=== PATIENT | male | born 1965 | race Caucasian/White ===

== ENCOUNTER 2024-11-14 08:04 | Outpatient (REF) | payer MEDICARE, SELFPAY ==
--- OUTSIDE RECORDS SUMMARY | 2024-11-14 08:08 | XMS_ITS | Encounter Summary ---
Author Organization [employer] Address [address] [place] [address] Care Team Providers Care Nuclear Powerplant Mechanic Name Role Phone NameAr MD Primary Care Provider [phone] Isha Taylor PharmD Unavailable [phone] Reason for Visit * Reason Onset Date Comments Prior Authorization 01/29/2024 Encounter Details Date Type Department Care Team ([facility] st Contact Info) Description 01/29/2024 Telephone [facility] [address] [place], [place] [phone] Name, MD Ar [address] [place] [address] Prior Authorization Social History Tobacco Use Types Packs/Day Years Used Date Smoking Tobacco: Some Days Cigarettes Passive Smoke Exposure: Current Smokeless Tobacco: Never Alcohol Use Standard Drinks/Week Comments Not Currently 0 (1 standard drink = 0.6 oz pur e alcohol) Housing Stability Answer Date Recorded What is your housing situation today? I have dillon bravo 07/26/[address] you li ve. Do you have problems with any of the following? None of the above 07/26/2023 Food Insecurity Answer Date Recorded Within the past 12 months, y ou worried that your food would run out before you got money to buy more: Never True 07/26/2023 Within the past 12 months,th e food you bought just didn't last and you didn't have enough money to get more: Never True Transportation Answer Date Recorded In the past 12 months, has l ack of transportation kept you from medical appts, meetings, work or from getting things needed for daily living? No 07/26/2023 Utilities Answer Date Recorded In the past 12 months, has t he electric, gas, oil or water company threatened to shut off services in your home? No 07/26/2023 Depression Answer Date Recorded Patient Health Questionnaire-2 Score 0 11/02/2022 Sex and Gender Information Value Date Recorded Sex Assigned at Male 08/08/2022 10:16 AM EDT Legal Sex Male 10:16 AM EDT Gender Identity Male 08/08/2022 10:16 AM EDT Sexual Orientation Straight 08/08/2022 10 :16 AM EDT documented as of this encounter Miscellaneous Notes * Telephone Encounter - Isa Oviedo - 02/28/2024 3:12 PM EDT Plastics Design Engineer has encountered errors while attempting to submit PA request, pt now found . No insurance scanned into chart. Plastics Design Engineer called pt to request info from insurance card. Lvm req call back and/or stop by [facility] to have insurance card scanned into chart. Waiting for call back. * Telephone Encounter - Lucia Arellano - 01/29/2024 9:52 AM EDT Tc from PA is needed for empagliflozin-metFORMIN (Synjardy) 12.5-1000 MG. Pt has not taken medication for 6 days. documented in this encounter Plan of Treatment Upcoming Encounters Date Type Department Care Team (Late st Contact Info) Description 01/08/2025 2:00 PM EDT Office Visit [facility] [address] [place] [address] Name, MD Ar [address] [place] [address] documented as of this encounter Goals Goal Patient Goal Type Associated Problems Recent Progress Patient-Stated? Author Smoking cessation General No Isha Taylor, PharmD Hemoglobin A1c < 7 Result Component 7.2( 11:15 AM EST) No Isha Taylor, PharmD Record your blood sugar as directed Result Component No Isha Taylor, PharmD documented as of this encounter Visit Diagnoses Not on filedocumented in this encounter Care Teams Nuclear Powerplant Mechanic Relationship Specialty Start Date End Date Name, MD Ar [address] [place] [address] PCP - General Family Medicine 12/25/15 Isha Taylor, PharmD [address] [place] [address] Pharmacist Internal Medicine 08/30/23 05/03/24 documented as of this encounter
--- OUTSIDE RECORDS SUMMARY | 2024-11-14 08:08 | XMS_ITS | Encounter Summary ---
Author Organization [employer] [facility] Address [address] [place] [address] 7t [place] [address] Care Team Providers Care Helper Metal Hanging Name Role Phone NameAr MD Primary Care Provider [phone] Isha Taylor PharmD Unavailable [phone] Encounter Details Date Type Department Care Team (Latest Contact Info) Description 05/16/2022 Abstract [facility] Dental, Provider, DDS Social History Tobacco Use Types Packs/Day Years Used Date Smoking Tobacco: Never Assessed Sex and Gender Information Value Date Recorded Sex Assigned at Male 08/08/2022 10:16 AM EDT Legal Sex Male 10:16 AM EDT Gender Identity Male 08/08/2022 10:16 AM EDT Sexual Orientation Straight 08/08/2022 10 :16 AM EDT documented as of this encounter Plan of Treatment Upcoming Encounters Date Type Department Care Team ( st Contact Info) Description 01/08/2025 2:00 PM EDT Office Visit [facility] [address] [place] [address] Ar Lyle MD [address] [place] [address] documented as of this encounter Visit Diagnoses Not on filedocumented in this encounter Care Teams Helper Metal Hanging Relationship Specialty Start Date End Date Ar Lyle MD [address] [place] [address] PCP - General Family Medicine 12/25/15 Isha Taylor, PharmD [address] [place] [address] Pharmacist Internal Medicine 08/30/23 05/03/24 documented as of this encounter
--- OUTSIDE RECORDS SUMMARY | 2024-11-14 08:08 | XMS_ITS | Encounter Summary ---
Author Organization [employer] Address [address] [facility] [address] [place] [address] Care Team Providers Care Benefits Sales Consultant Name Role Phone Name, Ar SHAW Primary Care Provider [phone] Encounter Details Date Type Department Care Team ([facility] st Contact Info) Description 10/22/2024 Telephone [facility] [address] [place], [place] [phone] Name, MD Ar [address] [place] [address] Social History Tobacco Use Types Packs/Day Years Used Date Smoking Tobacco: Some Days Cigarettes Passive Smoke Exposure: Current Smokeless Tobacco: Current Comments:Pt reports smoking 2-3 cigarettes per day Alcohol Use Standard Drinks/Week Comments Not Currently 0 (1 standard drink = 0.6 oz pur e alcohol) Depression Answer Date Recorded Patient Health Questionnaire-9 Score 17 05/24/2024 Patient Health Questionnaire-9 Score 17 05/24/2024 Last PHQ-9: Questionnaire Data Not on file 0 05/24/2024 Housing Stability Answer Date Recorded What is your housing situation today? I have dillon bravo 05/14/[address] you li ve. Do you have problems with any of the following? None of the above 05/14/2024 Food Insecurity Answer Date Recorded Within the past 12 months, y ou worried that your food would run out before you got money to buy more: Never True 05/14/2024 Within the past 12 months,th e food you bought just didn't last and you didn't have enough money to get more: Never True 03/2024 Transportation Answer Date Recorded In the past 12 months, has l ack of transportation kept you from medical appts, meetings, work or from getting things needed for daily living? No 05/14/2024 Utilities Answer Date Recorded In the past 12 months, has t he electric, gas, oil or water company threatened to shut off services in your home? No 05/14/2024 Depression Answer Date Recorded Patient Health Questionnaire-2 Score 6 05/24/2024 Internet Access Answer Date Recorded Internet Access Q1 Yes 06/07/2024 Internet Access Q2 Not on file 06/07/2024 Sex and Gender Information Value Date Recorded Sex Assigned at Male 08/08/2022 10:16 AM EDT Legal Sex Male 10:16 AM EDT Gender Identity Male 08/08/2022 10:16 AM EDT Sexual Orientation Straight 08/08/2022 10 :16 AM EDT documented as of this encounter Miscellaneous Notes * Telephone Encounter - Carolynn Arellano - 10/22/2024 1:23 PM EST T/c call to patient per recall, patient didn't answer. If patient call back you can book for december.Letter sent. documented in this encounter Plan of Treatment Upcoming Encounters Date Type Department Care Team (Late st Contact Info) Description 01/08/2025 2:00 PM EDT Office Visit [facility] [address] [place] [phone] NameAr MD [address] [place] [address] documented as of this encounter Goals Goal Patient Goal Type Associated Problems Recent Progress Patient-Stated? Author Smoking cessation General No Puia, Isha, PharmD Hemoglobin A1c < 7 Result Component 7.2( 4 11:15 AM EST) No Puia, Isha, PharmD Record your blood sugar as directed Result Component No Puia, Isha, PharmD documented as of this encounter Visit Diagnoses Not on filedocumented in this encounter Additional Health Concerns Assessment Noted Time PHQ-9 Depression Total Score: 17 024 10:43 AM EDT documented as of this encounter Care Teams Benefits Sales Consultant Relationship Specialty Start Date End Date NameAr MD [address] [place] [address] PCP - General Family Medicine 12/25/15 documented as of this encounter
--- OUTSIDE RECORDS SUMMARY | 2024-11-14 08:08 | XMS_ITS | Clinical Summary ---
Author Organization [employer] Address [address] [facility] 7[address] [place] [address] Care Team Providers Care Solid Plasterer Name Role Phone Name, Ar SHAW Primary Care Provider [phone] Allergies Active Allergy Reactions Criticality Noted Date Comments Atorvastatin 05/30/2016 Other reaction(s): facial swelling Buspirone 05/06/2023 Simvastatin Headache 11/06/2023 Medications * This document contains information received from the source organization and may not represent a complete record from that organization. naloxone (Narcan) 4 mg/0.1 mL nasal spray spray 0.1 milliliter by intranasal route in 1 nostril may repeat dose every 2-3 minutes as needed alternating nostrils with each dose 07/27/20 22 Active Blood Pressure kitIndications: Essential hypertension Use once a day 1 kit 11/02/19 23 Active polyethylene glycol, PEG, 3350 (Glycolax) 17 GM/SCOOP powder TAKE 1 SCOOP MIXED WITH WATER OR JUICE 1-2 TIMES A DAY NEEDED FOR CONSTIPATION 09/07/20 22 Active albuterol 108 (90 Base) MCG/ACT inhaler inhale 2 puff by inhalation route every 4 - 6 hours as needed 18 g 1 08/28/20 23 Active nicotine (Nicoderm, Step 2) 14 MG/24HR patchIndication s:Tobacco dependence Apply 1 patch daily for 6 weeks for smoking cessation. Wear for up to 24 hrs (or remove at bedtime if experiencing sleep-related side effects). Remove and replace, rotating sites. 42 patch 1 08/30/20 23 Active nicotine (Nicoderm, Step 3) 7 MG/24HR patchIndication s:Tobacco dependence Apply 1 patch daily for 2 weeks for smoking cessation. Wear for up to 24 hrs then remove and replace, rotating sites. 14 patch 5 08/30/20 23 Active glucose blood (FREESTYLE LITE) test stripIndication s:Type 2 diabetes mellitus without complication, without long-term current use of insulin ([facility]) Use to test blood sugar once daily as directed 50 each 5 08/30/20 23 Active chlorhexidine (Peridex) 0.12 % solution USE 15 ML TO RINSE MORNING AND EVENING AFTER BRUSHING FOR 30 SECONDS. SPIT DO NOT SWALLOW 09/14/20 23 Active Pulmicort Flexhaler 90 MCG/ACT inhaler INHALE 1 PUFF BY MOUTH ONCE DAILY 1 each 1 10/19/19 24 Active nicotine polacrilex (Nicorette) 4 MG gumIndications: Tobacco dependence Chew 1 piece every 1-2 hours as needed & as directed for cravings. To be used in addition to nicotine patch. 220 each 5 12/11/19 24 Active hydrOXYzine HCl (Atarax) 25 MG tabletIndicatio ns:Generalized anxiety disorder TAKE 1 TO 2 TABLETS BY MOUTH UP TO 4 TIMES DAILY NEEDED FOR ANXIETY 720 tablet 12/28/19 24 Active meloxicam (Mobic) 7.5 MG tablet TAKE 1 TABLET BY MOUTH EVERY DAY IN THE MORNING 30 tablet 01/17/20 24 Active amLODIPine (Norvasc) 10 MG tablet TAKE 1/2 TABLET BY MOUTH EVERY MORNING 45 tablet 3 04/22/20 24 Active aspirin (Aspir-Low) 81 MG EC tabletIndicatio ns:Type 2 diabetes mellitus without complication, without long-term current use of insulin ([facility]) Take 1 tablet (81 mg) by mouth Once per day. 90 tablet 3 05/07/20 24 2024 Active acamprosate (Campral) 333 MG EC tablet Take 2 tablets (666 mg) by mouth 3 times daily. Do not crush, chew, or split. 180 tablet 11 05/24/20 24 Active losartan (Cozaar) 100 MG tabletIndicatio ns:Essential hypertension Take 1 tablet (100 mg) by mouth Once per day. 30 tablet 11 06/12/20 24 2024 Active traZODone (Desyrel) 50 MG tablet TAKE 1/2 TABLET BY MOUTH AT BEDTIME IF NEEDED FOR SLEEP 45 tablet 1 06/17/20 24 Active omeprazole (PriLOSEC) [address] capsuleIndicati ons:Gastroesoph ageal reflux disease, unspecified whether esophagitis present TAKE 1 CAPSULE BY MOUTH EVERY DAY 30 MINUTES TO 1 HOUR BEFORE A MEAL 90 capsule 1 06/25/20 24 Active empagliflozin-m etFORMIN (Synjardy) 12.5-1000 MGIndications:T ype 2 diabetes mellitus without complication, without long-term current use of insulin (CMS/HCC) TAKE 1 TABLET BY MOUTH WITH BREAKFAST AND EVENING MEALS 180 tablet 1 07/08/20 24 Active methocarbamol (Robaxin) 500 MG tablet Take 1 tablet (500 mg) by mouth if needed in the morning and at bedtime for muscle spasms for up to 10 days. 20 tablet 08/30/20 24 Active PARoxetine (Paxil) 40 MG tabletIndicatio ns:Generalized anxiety disorder TAKE 1 TABLET BY MOUTH EVERY DAY IN THE MORNING 90 tablet 1 11/07/19 25 Active rosuvastatin (Crestor) 5 MG tabletIndicatio ns:Type 2 diabetes mellitus without complication, without long-term current use of insulin (CMS/HCC) TAKE 1 TABLET BY MOUTH EVERY DAY 90 tablet 1 11/07/19 25 Active PARoxetine (Paxil) 40 MG tabletIndicatio ns:Generalized anxiety disorder TAKE 1 TABLET BY MOUTH EVERY DAY IN THE MORNING 90 tablet 1 04/22/20 24 2024 Discontinued rosuvastatin (Crestor) 5 MG tabletIndicatio ns:Type 2 diabetes mellitus without complication, without long-term current use of insulin (CMS/HCC) Take 1 tablet (5 mg) by mouth Once daily. 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 ED (erectile dysfunction) 08/06/2008 Anxiety 02/18/2008 Depression 02/18/2008 Overview (04/26/2023): Patient describes depression, irritability and multiple somatic complaints since the of his brother. Patient denies any suicical ideation. He described difficulties tolerting stess and family h/o of depression. Encounters Date Type Department Care Team Description 11/07/2024 Refill [facility] [address] [place] [address] NameAr MD Generalized anxiety disorder; Type 2 diabetes mellitus without complication, without long-term current use of insulin (CMS/HCC) 10/22/[address] [address] Ar Lyle MD 08/30/2024 11:15 AM EST Office Visit [address] [address] Ar Lyle MD Type 2 diabetes mellitus without complication, without long-term current use of insulin (CMS/HCC) (Primary Dx); Alcoholism (CMS/HCC); Essential hypertension; Acute neck pain 08/30/2024 Travel 08/28/[address] [address] Myah Uriostegui [place] Chart Prep from Last 3 Months Immunizations Name Administration Dates Next Due Influenza Injectable Quadriv alant Preservative Free IIV4 MDCK 11/03/2023 Influenza injectable quadriv alent IIV4 with preservative 06/25/2019,07/19/2017 Influenza injectable quadriv alent preservative free 08/08/2022,07/28/2021,07/09/2020 Moderna Covid-19 Vaccine 12+ 12/17/2020 Moderna Covid-19 Vaccine 6+ Bivalent 09/16/2022 Pneumococcal Conjugate PCV 20 05/24/2024 TD (adult), 2 Lf tetanus tox oid, preservative free, adsorbed 06/09/2007 Tdap 08/24/2016 Social History Tobacco Use Types Packs/Day Years Used Date Smoking Tobacco: Some Days Cigarettes Passive Smoke Exposure: Current Smokeless Tobacco: Current Tobacco Cessation:Ready to Q uit: No; Counseling Given: Yes Comments:Pt reports smoking 2-3 cigarettes per day [...] Orientation Straight 08/08/2022 10 :16 AM EDT Last Filed Vital Signs Vital Sign Reading Time Taken Comments Blood Pressure 121/81 08/30/2024 11:11 AM EST Pulse 104 08/30/2024 11:11 AM EST Temperature 36.5 ??C (97.7 ??F) 08/30/2024 11:[address] Respiratory Rate 22 08/30/2024 11:11 AM EST Oxygen Saturation 98% 08/30/2024 11:11 AM EST Inhaled Oxygen Concentration - - Weight 100 kg (220 lb 6.4 oz) 08/30/2024 11:11 A M EST Height 188 cm (6' 2 ) 08/30/2024 11:11 AM EST Body Mass Index 28.3 08/30/2024 11:11 AM EST Plan of Treatment Upcoming Encounters Date Type Department Care Team (Late st Contact Info) Description 01/08/2025 2:00 PM EDT Office Visit [facility] [address] [place], [place] [phone] Name, MD Ar [address] [place] [address] Health Maintenance Due Date Last Done Comments CT Colonography 1967 FIT DNA/Cologuard 1967 FIT 1967 FOBT 1967 HIV Screening 1967 Sigmoidoscopy 1967 Hepatitis C Screening 1985 Hepatitis A Vaccines (1 of 2 - Risk 2-dose series) 1986 Hepatitis B Vaccines (1 of 3 - 19+ 3-dose series) 1986 Zoster Vaccines (1 of 2) 2017 Diabetes: Urine Protein Screening 11/02/2023 11/02/2022, 12/30/2020 Lipid Panel 11/02/2023 11/02/2022, 12/30/2020 COVID-19 Vaccine ( season) 2024 11/03/2023, 09/16/2022, 02/15/2022, Additional history exists Influenza Vaccine (#1) 2024 , 08/08/2022, 07/28/2021, Additional history exists Depression Monitoring (PHQ-9) 11/24/2024 05/24/2024, 05/24/2024 Diabetes: Hemoglobin A1C 11/30/202408/30/2 024, 05/24/2024, 09/29/2023, Additional history exists SDOH Screening 05/14/2025 05/14/2024 Alcohol/Substance Use Screening 05/24/2025 05/24/2024 Depression Screening 05/24/2025 05/24/2024, 05/24/20 24 Diabetes: Foot Exam 05/24/2025 05/24/2024, 05/24/2024, 05/24/2024, Additional history exists Tobacco Screening 08/30/2025 08/30/2024 Eye Exam 05/27/2026 05/27/2024 DTaP/Tdap/Td Vaccines (2 - Td or Tdap) 08/24/2026 08/24/2016, 06/09/2007 Colonoscopy 11/09/2027 11/09/2017 Colorectal Cancer Screening 11/09/2027 RSV Patients and Patients Aged 60 years or older (1 - 1-dose 75+ series) 2042 Pneumococcal Vaccine: 50+ Years Completed 05/24/2024 HIB Vaccines Aged Out No longer eligi ble based on patient's age to complete this topic HPV Vaccines Aged Out No longer eligi ble based on patient's age to complete this topic IPV Vaccines Aged Out No longer eligi ble based on patient's age to complete this topic Meningococcal Vaccine Aged Out No tanna yasmin eligible based on patient's age to complete this topic RSV under 20 months Aged Out No longe r eligible based on patient's age to complete this topic Rotavirus Vaccines Aged Out No longer eligible based on patient's age to complete this topic Goals Goal Patient Goal Type Associated Problems Recent Progress Patient-Stated? Author Smoking cessation General No Isha Taylor, PharmD Hemoglobin A1c < 7 Result Component 7.2( 11:15 AM EST) No Isha Taylor, PharmD Record your blood sugar as directed Result Component No Isha Taylor PharmD Procedures Procedure Name Priority Date/Time Associated Diagnosis Comments POCT GLYCATED HEMOGLOBIN, TOTAL Routine 08/30/2024 11:15 AM EST Type 2 diabetes mellitus without complication, without long-term current use of insulin ([facility]) POCT GLUCOSE Routine 08/30/2024 11:14 AM EST Type 2 diabetes mellitus without complication, without long-term current use of insulin ([facility]) ALBUMIN, RANDOM URINE W/CREATININE Routine 11/02/2022 8:22 AM EST LIPID PANEL, STANDARD Routine 11/02/2022 8:22 AM EST HM COLONOSCOPY Routine 11/09/2017 3:14 PM EST from Last 3 Months or Most Recently Relevant to Health Maintenance Results * (ABNORMAL) POCT HGB A1C (08/30/2024 11:15 AM EST) Hemoglobin A1C 7.2(A) 4.0 - 6.0 % [employer] Media Lot # [id number] Lot# Expiration Date Blood 08/30/2024 11:1 5 AM EST us Ar Lyle MD POINT OF CARE TEST ENTER/EDIT OR DERABLES Final Result * POCT Glucose (08/30/2024 11:14 AM EST) Glucose Blood, POC 157 60 - 200 mg/dL [employer] [facility] Lot # [id number] Lot# Expiration Date 025 Blood Capillary blood specimen / Unknown 08/30/2024 11:14 AM EST us Ar Lyle MD POINT OF CARE TEST ENTER/EDIT OR DERABLES Final Result * Albumin, Random Urine W/Creatinine (11/02/2022 8:22 AM EST) Creatinine, Random Urine 243 20 - 320 mg/dL [facility] Albumin, Urine 6.1 See Note: mg/dL [facility] Comment: Reference Range: Reference Range Not established Albumin/Creatinin e Ratio, Random Urine 25 <30 mcg/mg creat [facility] Comment: The ADA defines abnormalities in albumin excretion as follows: Albuminuria Category ?Result (mcg/mg creatinine) Normal to Mildly increased ?? <30 Moderately increased ? 30-299 Severely increased ? > OR = 300 The ADA recommends that at least two of three specimens collected within a 3-6 month period be abnormal before considering a patient to be within a diagnostic category. 11/02/2022 8:22 AM EST 11/02/2022 8:23 AM EST Narrative [facility] - 11/03/2022 5:25 PM EST FASTING:YES FASTING: YES us Ar Lyle MD LAB URINE ORDERABLES Final Resul t [facility] [address] [facility], [place] [address] [facility] [place] [facility] [address], ([address]) [place] [address] * (ABNORMAL) Lipid Panel, Standard (11/02/2022 8:22 AM EST) Cholesterol, Total 181 <200 mg/dL [facility] [place] [facility] HDL Cholesterol 44 > OR = 40 mg/dL [facility] [place] [facility] Triglycerides 157(H) <150 mg/dL [facility] [place] [facility] LDL Cholesterol 110(H) mg/dL (calc) [facility] [place] [facility] Comment: Reference range: <100 Desirable range <100 mg/dL for primary prevention; ?? <70 mg/dL for patients with CHD or diabetic patients with > or = 2 CHD risk factors. LDL-C is now calculated using the Naman-Leslye calculation, which is a validated novel method providing better accuracy than the Friedewald equation in the estimation of LDL-C. Naman KWAN et al. MIHAELA. 2013;310(19): 4411-0623 (http://education.[employer]/faq/NVQ824) Chol/HDLC Ratio 4.1 <5.0 (calc) [facility] Non-HDL Cholesterol 137(H) <130 mg/dL (calc) [facility] Comment: For patients with diabetes plus 1 major ASCVD risk factor, treating to a non-HDL-C goal of <100 mg/dL (LDL-C of <70 mg/dL) is considered a therapeutic option. 11/02/2022 8:22 AM EST 11/02/2022 8:23 AM EST Narrative [facility] - 11/03/2022 5:25 PM EST FASTING:YES FASTING: YES us Ar Name LAB BLOOD ORDERABLES Final Resul t [facility] [address] [place] [address] [facility] [address], ([address]) [place] [address] * Hm Colonoscopy (11/09/2017 3:14 PM EST) Colonoscopy Normal Normal Narrative Sylvia Kumar - 11/09/2017 3:14 PM EST Recommended 10 year follow up Historical Provider HEALTH MAINTENANCE Final Result from Last 3 Months or Most Recently Relevant to Health Maintenance Insurance - [facility] Care Teams Solid Plasterer Relationship Specialty Start Date End Date Name, MD Ar [address] [place] [id number] PCP - General Family Medicine 12/25/15
--- OUTSIDE RECORDS SUMMARY | 2024-11-14 08:08 | XMS_ITS | Encounter Summary ---
Author Organization [employer] Address [address] [facility] 7t [place] [address] Care Team Providers Care Licensed Retail Supervisor Name Role Phone Name, Ar SHAW Primary Care Provider [phone] Reason for Visit * Reason Comments Med Refill Encounter Details Date Type Department Care Team ([facility] st Contact Info) Description 11/07/2024 Refill [facility] [address] [place], [place] [phone] Name, MD Ar [address] [place] [address] Generalized anxiety disorder; Type 2 diabetes mellitus without complication, without long-term current use of insulin ([facility]) Social History Tobacco Use Types Packs/Day Years [...] Description 01/08/2025 2:00 PM EDT Office Visit [facility] MED[facility]INE [address] [place] [address] Name, MD Ar [address] [place] [address] documented as of this encounter Goals Goal Patient Goal Type Associated Problems Recent Progress Patient-Stated? Author Smoking cessation General No Puia, Isha, PharmD Hemoglobin A1c < 7 Result Component 7.2( 4 11:15 AM EST) No Puia, Isha, PharmD Record your blood sugar as directed Result Component No Puia, Isha, PharmD documented as of this encounter Visit Diagnoses Diagnosis Generalized anxiety disorder Type 2 diabetes mellitus without complication, without long-term current use of insulin ([facility]) documented in this encounter Additional Health Concerns Assessment Noted Time PHQ-9 Depression Total Score: 17 024 10:43 AM EDT documented as of this encounter Care Teams Licensed Retail Supervisor Relationship Specialty Start Date End Date NameAr MD [address] [place] [id number] PCP - General Family Medicine 3/18/16 documented as of this encounter
--- OUTSIDE RECORDS SUMMARY | 2024-11-14 08:08 | XMS_ITS | Encounter Summary ---
Author Organization [facility] Address [address] [place] [address] 7t [place] [address] Care Team Providers Care Treasury Assistant Name Role Phone NameAr MD Primary Care Provider [phone] Isha Taylor PharmD Unavailable [phone] Encounter Details Date Type Department Care Team (Latest Contact Info) Description 11/22/2018 Abstract [facility] CONVERSIONS Dental, Provider, DDS Social History Tobacco [...] Description 01/08/2025 2:00 PM EDT Office Visit [facility] MEDICINE [address] [place] [address] Ar Lyle MD [address] [place] [address] documented as of this encounter Visit Diagnoses Not on filedocumented in this encounter Care Teams Treasury Assistant Relationship Specialty Start Date End Date Ar Lyle MD [address] [place] [address] PCP - General Family Medicine 12/25/15 Isha Taylor, PharmD [address] [place] [address] Pharmacist Internal Medicine 08/30/23 05/03/24 documented as of this encounter
--- OUTSIDE RECORDS SUMMARY | 2024-11-14 08:08 | XMS_ITS | Encounter Summary ---
Author Organization [facility] [facility] Address [address] [facility] 7t [place] [address] Care Team Providers Care Dress Marker Name Role Phone NameAr MD Primary Care Provider [phone] Isha Taylor PharmD Unavailable [phone] Reason for Visit * Reason Comments Med Refill Encounter Details Date Type Department Care Team (Late st Contact Info) Description 06/20/[address] [facility] [address] [place] [id number] Ar Lyle MD [address] [place] [address] [phone] Generalized anxiety disorder Social History Tobacco Use Types Packs/Day Years Used Date Smoking Tobacco: Some Days Cigarettes Smokeless Tobacco: Never Alcohol Use Standard Drinks/Week Comments Not Currently 0 (1 standard drink = 0.6 oz pur e alcohol) Depression Answer Date Recorded Patient Health Questionnaire-2 [...] Description 01/08/2025 2:00 PM EDT Office Visit [facility] [address] [place] [address] [phone] Ar Lyle MD [address] [place] [address] [phone] documented as of this encounter Visit Diagnoses Diagnosis Generalized anxiety disorder documented in this encounter Care Teams Dress Marker Relationship Specialty Start Date End Date Name, MD Ar [address] [place] [address] PCP - General Family Medicine 12/25/15 Isha Taylor PharmD [address] [place] [address] Pharmacist Internal Medicine 08/30/23 05/03/24 documented as of this encounter
--- OUTSIDE RECORDS SUMMARY | 2024-11-14 08:09 | XMS_ITS | Clinical Summary ---
Author Organization [facility] Address [address] [place] [address] Care Team Providers Care Alumina Refinery Operator Name Role Phone Name, Ar SHAW Primary Care Provider [phone] Surgical History Surgery Date Site/Laterality Comments ESOPHAGOGASTRODUODENOSCOPY 03/04/08 PROCEDURE: [place] EGD TRANSORAL BIOPSY SINGLE/MULTIPLE; COMMENT: Normal esophagus, stomach-(bx:chronic gastritis, HPylori+) and duodenum on this examination. Treated for H pylori MULTIPLE TOOTH EXTRACTIONS PROCEDURE: HISTORICAL DENTAL EXTRACTION Medical History Medical History Date Comments Esophageal reflux DX:Esophageal reflux Type II or unspecified type diabetes mellitus with unspecified complication, not stated as uncontrolled DX:Type II or unspecified t ype diabetes mellitus with unspecified complication, not stated as uncontrolled Family History Medical History Relation Name Comments Diabetes Father Hyperlipidemia Father Hypertension Father Diabetes Mother age 80 Hyperlipidemia Mother Hypertension Mother Blindness Neg Hx Cataracts Neg Hx Glaucoma Neg Hx Macular degeneration Neg Hx Strabismus Neg Hx Relation Name Status Comments Father Alive at age 103 of pneumonia, was diabetic Mother dm Sister dm Social History Tobacco Use Types Packs/Day Years Used Date Smoking Tobacco: Former Cigarettes Q uit: 10/09/2005 Smokeless Tobacco: Never Alcohol Use Standard Drinks/Week Comments Yes 0 (1 standard drink = 0.6 oz pur e alcohol) Sex and Gender Information Value Date Recorded Sex Assigned at Not on file Gender Identity Not on file Sexual Orientation Not on file Obstetrics History Plan of Treatment Health Maintenance Due Date Last Done Comments Diabetes: Annual GFR (Glomer ular Filtration Rate) 1967 Diabetes: Annual Foot Exam 1977 Diabetes: Annual Retina Eye Exam 1977 Hepatitis A Vaccines (1 of 2 - Risk 2-dose series) 1986 Hepatitis B Vaccines (1 of 3 - 19+ 3-dose series) 1986 Zoster Vaccines (1 of 2) 2017 DTaP,Tdap,and Td Vaccines (2 - Td or Tdap) 06/09/2017 06/09/2007 Cholesterol Screening (Lipid Panel) 09/07/2022 Colorectal Cancer Screening: Colonoscopy 09/07/2022 Depression Screening 09/07/2022 HIV Screening 09/07/2022 Hepatitis C Screening 09/07/2022 Social Influencers of Health Screening 09/07/2022 Diabetes: Annual Urine Albumin-Creatinine Ratio (uACR) 09/23/2022 Diabetes: Blood Sugar Contro l Test (HGBA1C) 09/23/2022 COVID-19 Vaccine ( - 2023-2 5 season) 2024 Influenza Vaccine (#1) 2024 HIB Vaccines Aged Out No longer eligi ble based on patient's age to complete this topic HPV Vaccines Aged Out No longer eligi ble based on patient's age to complete this topic IPV Vaccines Aged Out No longer eligi ble based on patient's age to complete this topic MMR Vaccines Aged Out No longer eligi ble based on patient's age to complete this topic Meningococcal ACWY Vaccine Aged Out N o longer eligible based on patient's age to complete this topic Pneumococcal Vaccine: Pediat rics (0 to 5 Years) and At-Risk Patients (6 to 64 Years) Aged Out No longer eligi ble based on patient's age to complete this topic RSV Immunization Patients Un javier 20 months Aged Out No longer eligible b ased on patient's age to complete this topic Varicella Vaccines Aged Out No longer eligible based on patient's age to complete this topic Care Teams Alumina Refinery Operator Relationship Specialty Start Date End Date Name, MD Ar [address] [place] [address] PCP - General Internal Medicine 03/14/16
--- OUTSIDE RECORDS SUMMARY | 2024-11-14 08:09 | XMS_ITS | Encounter Summary ---
Author Organization [facility] Address [address] [place] [address] 7t [place] [address] Care Team Providers Care Technicians And Trades Workers Name Role Phone NameAr MD Primary Care Provider [phone] Isha Taylor PharmD Unavailable [phone] Encounter Details Date Type Department Care Team (Late st Contact Info) Description 03/09/2023 Abstract [facility] MEDICINE [address] [place] [address] [phone] Ar Lyle MD [address] [place] [address] [phone] Social History Tobacco Use Types Packs/Day Years [...] Description 01/08/2025 2:00 PM EDT Office Visit [facility] [address] [place] [address] [phone] Ar Lyle MD [address] [place] [address] [phone] documented as of this encounter Procedures Procedure Name Priority Date/Time Associated Diagnosis Comments COLONOSCOPY Routine 11/09/2017 3:14 PM EST documented in this encounter Results * Colonoscopy (11/09/2017 3:14 PM EST) Colonoscopy Normal Normal Narrative Sylvia Kumar - 11/09/2017 3:14 PM EST Recommended 10 year follow up Historical Provider HEALTH MAINTENANCE Final Result documented in this encounter Visit Diagnoses Not on filedocumented in this encounter Care Teams Technicians And Trades Workers Relationship Specialty Start Date End Date Name, MD Ar [address] [place] [address] PCP - General Family Medicine 12/25/15 Isha Taylor PharmD [address] [place] [address] Pharmacist Internal Medicine 08/30/23 05/03/24 documented as of this encounter
--- OUTSIDE RECORDS SUMMARY | 2024-11-14 08:09 | XMS_ITS | Encounter Summary ---
Author Organization [employer] [facility] Address [address] [place] [address] 7t [place] [address] Care Team Providers Care Bicycle Technician Name Role Phone Name, Ar SHAW Primary Care Provider [phone] Isha Taylor PharmD Unavailable [phone] Encounter Details Date Type Department Care Team (Late Contact Info) Description 11/07/2022 Orders Only [facility] [address] [place] [address] [phone] Martha Linder LPN Social History Tobacco Use Types Packs/Day Years Used Date Smoking Tobacco: Every Day Cigarettes Smokeless Tobacco: Never Alcohol Use Standard [...] Orientation Straight 08/08/2022 10 :16 AM EDT COVID-19 Exposure Response Date Recorded In the last 10 days, have yo u been in contact with someone who was confirmed or suspected to have Coronavirus/COVID-19? No / Unsure 11/02/2022 2:22 PM EST documented as of this encounter Plan of Treatment Upcoming Encounters Date Type Department Care Team (Late st Contact Info) Description 01/08/2025 2:00 PM EDT Office Visit [facility] [address] [place] [address] [phone] Name, MD Ar [address] [place] [address] [phone] documented as of this encounter Visit Diagnoses Not on filedocumented in this encounter Care Teams Bicycle Technician Relationship Specialty Start Date End Date Name, MD Ar [address] [place] [address] PCP - General Family Medicine 12/25/15 Isha Taylor, Kayla [address] [place] [address] Pharmacist Internal Medicine 08/30/23 05/03/24 documented as of this encounter
[2024-11-14 11:17] LABS: MANUAL DIFF FLAG NO
[2024-11-14 11:21] LABS: Basophils Absolute Auto 0.1 X10*3/uL (0.0-0.2); Basophils Percent Auto 0.7 % (0-2); Eosinophils Absolute Auto 0.4 X10*3/uL (0.0-0.4); Eosinophils Percent Auto 5.7 % (0-4); Hematocrit 47.2 % (42.0-52.0); Hemoglobin 15.4 g/dl (14.0-18.0); Imm Gran Abs Auto 0.07 X10*3/uL (0.00-0.03); Mean Corpuscular HGB Conc 32.6 g/dl (31.0-36.0); Mean Corpuscular Hemoglobin 28.8 pg (27.0-33.0); Mean Corpuscular Volume 88.2 fL (80.0-98.0); Mean Platelet Volume 11.9 fL (9.4-12.4); Monocytes Absolute Auto 0.5 X10*3/uL (0.1-1.2); Monocytes Percent Auto 7.2 % (2-11); Neutrophils Absolute Auto 3.3 x10*3/uL (2.0-8.3); Neutrophils Percent Auto 44.4 % (45-73); Platelet Count 190 X10*3/uL (160-400); Red Blood Count 5.35 X10*6/uL (4.60-5.80); Red Cell Distribution Width 14.2 % (11.0-16.0); White Blood Count 7.3 X10*3/uL (4.8-10.8)
[2024-11-14 11:43] LABS: Alanine Aminotransferase 18 U/L (0-40); Albumin Level 4.3 g/dL (3.5-5.0); Alkaline Phosphatase 61 U/L (39-117); Anion Gap 11 (12-20); Aspartate Amino Transferase 18 U/L (5-37); Bilirubin Total 0.3 mg/dL (0.0-1.0); Blood Urea Nitrogen 17 mg/dL (9-16); Calcium 9.3 mg/dL (8.4-10.2); Carbon Dioxide 24 mmol/L (22-29); Chloride 106 mmol/L (96-108); Cholesterol 238 mg/dL (<200); Estimated Glomerular Filt Rate > 60; Glucose Random 150 mg/dL (60-115); HDL Cholesterol 42 mg/dL (>40); LDL Cholesterol Calculated 151 mg/dL (<100); Potassium 4.4 mmol/L (3.3-5.1); Sodium 137 mmol/L (135-145); Total Protein 8.3 g/dL (6.5-8.0); Triglycerides 225 mg/dL (<150)
[2024-11-14 11:57] LABS: Creatinine Urine 110.63 mg/dL; Microalbum/Creatinine Ratio Ur 50.6 ug/mg cr (<30)
== END 2024-11-14 08:05 | disposition home or self-care (01) ==
LOC: HO.HHCL 08:04
PROVIDERS: Visit Provider Internal Medicine Geriatric Medicine
DX: I10 Essential (primary) hypertension (principal); E78.00 Pure hypercholesterolemia, unspecified; G47.00 Insomnia, unspecified; E11.9 Type 2 diabetes mellitus without complications
CPT/HCPCS: 36415; 80053; 80061; 82043; 82570; 85025

== ENCOUNTER 2024-11-27 10:25 | Outpatient (REF) | payer OTHER, SELFPAY ==
--- OUTSIDE RECORDS SUMMARY | 2024-11-27 11:03 | XMS_ITS | Clinical Summary ---
Author Organization [facility] Address [address] [place] [address] Care Team Providers Care Penal Officer Name Role Phone Name, Ar SHAW Primary Care Provider [phone] Surgical History Surgery Date Site/Laterality Comments ESOPHAGOGASTRODUODENOSCOPY 03/04/08 PROCEDURE: [place] EGD TRANSORAL BIOPSY SINGLE/MULTIPLE; COMMENT: Normal esophagus, [...] Recorded Sex Assigned at Not on file Legal Sex Male 4:27 PM EST Gender Identity Not on file Sexual Orientation Not on file Obstetrics History Plan of Treatment Health Maintenance Due Date Last Done Comments Diabetes: Annual GFR (Glomer ular Filtration Rate) 1967 Diabetes: Annual Foot Exam 1977 Diabetes: Annual Retina Eye Exam 1977 Hepatitis A Vaccines (1 of 2 - Risk 2-dose series) 1986 Hepatitis B Vaccines (1 of 3 - 19+ 3-dose series) 1986 Pneumococcal Vaccine: 50+ Ye ars (1 of 1 - PCV) 2017 Zoster Vaccines (1 of 2) 2017 DTaP,Tdap,and [...] patient's age to complete this topic Meningococcal B Vacine Aged Out No lo nger eligible based on patient's age to complete [...] age to complete this topic Care Teams Penal Officer Relationship Specialty Start Date End Date Name, MD Ar [address] [place], [place] PCP - General Internal Medicine 03/14/16
[2024-11-27 11:41] LABS: Appearance Urine Clear; Color Urine Yellow; Glucose Urine UA >=1000 mg/dL (Negative); Leukocyte Esterase Urine Negative (Negative); Nitrite Urine Negative (Negative); Specific Gravity - Urine >= 1.030 (1.005-1.025); UMIC TRIGGER UACC YES; Urine Blood Negative (Negative); Urine Ketones Negative (Negative); Urine Protein Trace mg/dL (Neg-Trace)
[2024-11-27 11:43] LABS: Anion Gap 12 (12-20); Blood Urea Nitrogen 17 mg/dL (9-16); Calcium 9.9 mg/dL (8.4-10.2); Carbon Dioxide 25 mmol/L (22-29); Chloride 105 mmol/L (96-108); Estimated Glomerular Filt Rate > 60; Glucose Random 160 mg/dL (60-115); Potassium 4.4 mmol/L (3.3-5.1); Sodium 138 mmol/L (135-145)
[2024-11-27 11:44] LABS: Bacteria Urine None Seen (None Seen); Hyaline Casts Urine 0-2 /LPF (0-2); RBC Urine 0-2 /HPF (0-2); Squamous Epithelial Cell Urine 0-2 /HPF (0-2); WBC Urine 0-5 /HPF (0-5)
== END 2024-11-27 10:26 | disposition home or self-care (01) ==
LOC: HO.HHCL 10:25
PROVIDERS: Visit Provider Internal Medicine Geriatric Medicine
DX: I10 Essential (primary) hypertension (principal); R35.1 Nocturia; N40.1 Benign prostatic hyperplasia with lower urinary tract symptoms; Z12.5 Encounter for screening for malignant neoplasm of prostate
CPT/HCPCS: 36415; 80048; 81001; 84153

== ENCOUNTER 2025-01-21 08:00 | Outpatient (AMB) | payer OTHER, SELFPAY ==
--- OUTSIDE RECORDS SUMMARY | 2025-01-21 08:05 | XMS_ITS | Encounter Summary ---
Author Organization [employer] [facility] Address [address] [place] [address] 7t [place] [address] Care Team Providers Care Roving Tester Laboratory Name Role Phone NameAr MD Primary Care Provider [phone] Isha Taylor PharmD Unavailable [phone] Reason for Visit * Reason Comments Med Refill Encounter Details Date Type Department Care Team (Late st Contact Info) Description 06/20/[address] [facility] [address] [place] [address] [phone] NameAr MD [address] [place] [address] Generalized anxiety disorder Social History Tobacco Use [...] as of this encounter Plan of Treatment Not on file documented as of this encounter Visit Diagnoses Diagnosis Generalized anxiety disorder documented in this encounter Care Teams Roving Tester Laboratory Relationship Specialty Start Date End Date Ar Lyle MD [address] [place] [address] [phone] PCP - General Family Medicine 12/25/15 Isha Taylor PharmD [address] [place] [phone] Pharmacist Internal Medicine 08/30/23 05/03/24 documented as of this encounter
--- OUTSIDE RECORDS SUMMARY | 2025-01-21 08:05 | XMS_ITS | Encounter Summary ---
Author Organization [facility] Address [address] [place] [address] 7t [place] [address] Care Team Providers Care Energy Project Engineer Name Role Phone Name, Ar SHAW Primary Care Provider [phone] Isha Taylor PharmD Unavailable [phone] Encounter Details Date Type Department Care Team (Latest Contact Info) Description 11/22/2018 Abstract [facility]VERSION[facility] Dental, Provider, DDS Social History Tobacco [...] on filedocumented in this encounter Care Teams Energy Project Engineer Relationship Specialty Start Date End Date Name, MD Ar [address] [place] [address] PCP - General Family Medicine 12/25/15 Isha Taylor, PharmD [address] [place] [address] Pharmacist Internal Medicine 08/30/23 05/03/24 documented as of this encounter
--- OUTSIDE RECORDS SUMMARY | 2025-01-21 08:05 | XMS_ITS | Clinical Summary ---
Author Organization [facility] Address [address] [place] [address] Care Team Providers Care Search Engine Marketing Specialist Name Role Phone Name, Ar SHAW Primary Care Provider [phone] Surgical History Surgery Date Site/Laterality Comments ESOPHAGOGASTRODUODENOSCOPY 03/04/08 PROCEDURE: [place] EGD TRANSORAL BIOPSY SINGLE/MULTIPLE; COMMENT: Normal esophagus, [...] - 2023-2 5 season) 2024 Influenza Vaccine (Season Ended) 2025 HIB Vaccines Aged Out No longer eligi [...] age to complete this topic Meningococcal B Vaccine Aged Out No l onger eligible based on patient's age to complete [...] age to complete this topic Care Teams Search Engine Marketing Specialist Relationship Specialty Start Date End Date Name, MD Ar [address] [place], [place] PCP - General Internal Medicine 03/14/16
--- OUTSIDE RECORDS SUMMARY | 2025-01-21 08:05 | XMS_ITS | Clinical Summary ---
Author Organization [employer] Address [address] [facility] [address] [place] [address] Care Team Providers Care Recycle Driver Name Role Phone Name, Ar SHAW Primary Care Provider [phone] Allergies Active Allergy Reactions Criticality Noted Date [...] as needed alternating nostrils with each dose 022 Active Blood Pressure kitIndications: Essential hypertension Use once a day 1 kit 023 Active polyethylene glycol, PEG, 3350 (Glycolax) 17 GM/SCOOP powder TAKE 1 SCOOP MIXED WITH WATER OR JUICE 1-2 TIMES A DAY NEEDED FOR CONSTIPATION 022 Active albuterol 108 (90 Base) MCG/ACT inhaler inhale 2 puff by inhalation route every 4 - 6 hours as needed 18 g 1 023 Active nicotine (Nicoderm, Step 2) 14 MG/24HR patchIndication s:Tobacco dependence Apply 1 patch daily for 6 weeks for smoking cessation. Wear for up to 24 hrs (or remove at bedtime if experiencing sleep-related side effects). Remove and replace, rotating sites. 42 patch 1 023 Active nicotine (Nicoderm, Step 3) 7 MG/24HR patchIndication s:Tobacco dependence Apply 1 patch daily for 2 weeks for smoking cessation. Wear for up to 24 hrs then remove and replace, rotating sites. 14 patch 5 Active glucose blood (FREESTYLE LITE) test stripIndication s:Type 2 diabetes mellitus without complication, without long-term current use of insulin ([facility]) Use to test blood sugar once daily as directed 50 each 5 023 Active chlorhexidine (Peridex) 0.12 % solution USE 15 ML TO RINSE MORNING AND EVENING AFTER BRUSHING FOR 30 SECONDS. SPIT DO NOT SWALLOW Active Pulmicort Flexhaler 90 MCG/ACT inhaler INHALE 1 PUFF BY MOUTH ONCE DAILY 1 each 1 024 Active nicotine polacrilex (Nicorette) 4 MG gumIndications: Tobacco dependence Chew 1 piece every 1-2 hours as needed & as directed for cravings. To be used in addition to nicotine patch. 220 each 5 024 Active meloxicam (Mobic) 7.5 MG tablet TAKE 1 TABLET BY MOUTH EVERY DAY IN THE MORNING 30 tablet 024 Active amLODIPine (Norvasc) 10 MG tablet TAKE 1/2 TABLET BY MOUTH EVERY MORNING 45 tablet 3 024 Active aspirin (Aspir-Low) 81 MG EC tabletIndicatio ns:Type 2 diabetes mellitus without complication, without long-term current use of insulin ([facility]) Take 1 tablet (81 mg) by mouth Once per day. 90 tablet 3 024 2024 Active acamprosate (Campral) 333 MG EC tablet Take 2 tablets (666 mg) by mouth 3 times daily. Do not crush, chew, or split. 180 tablet 024 Active losartan (Cozaar) 100 MG tabletIndicatio ns:Essential hypertension Take 1 tablet (100 mg) by mouth Once per day. 30 tablet 024 2024 Active methocarbamol (Robaxin) 500 MG tablet Take 1 tablet (500 mg) by mouth if needed in the morning and at bedtime for muscle spasms for up to 10 days. 20 tablet 024 Active PARoxetine (Paxil) 40 MG tabletIndicatio ns:Generalized anxiety disorder TAKE 1 TABLET BY MOUTH EVERY DAY IN THE MORNING 90 tablet 1 025 Active hydrOXYzine HCl (Atarax) 25 MG tabletIndicatio ns:Generalized anxiety disorder TAKE 1 TO 2 TABLETS BY MOUTH UP TO 4 TIMES DAILY NEEDED FOR ANXIETY 720 tablet 025 Active traZODone (Desyrel) 50 MG tablet TAKE 1/2 TABLET BY MOUTH AT BEDTIME IF NEEDED FOR SLEEP 45 tablet 1 025 Active omeprazole (PriLOSEC) [address] capsuleIndicati ons:Gastroesoph ageal reflux disease, unspecified whether esophagitis present TAKE 1 CAPSULE BY MOUTH EVERY DAY 30 MINUTES TO 1 HOUR BEFORE A MEAL 90 capsule 1 025 Active tamsulosin (Flomax) 0.4 MG 24 hr capsule Take 2 capsules (0.8 mg) by mouth Once per day. 60 capsule 2 025 2024 Active empagliflozin-m etFORMIN (Synjardy) 12.5-1000 MGIndications:T ype 2 diabetes mellitus without complication, without long-term current use of insulin ([facility]) TAKE 1 TABLET BY MOUTH TWICE DAILY WITH BREAKFAST AND WITH DINNER 180 tablet 1 025 Active rosuvastatin (Crestor) 5 MG tabletIndicatio ns:Type 2 diabetes mellitus without complication, without long-term current use of insulin ([facility]) Take 1 tablet (5 mg) by mouth Once per day. 90 tablet 1 025 Active traZODone (Desyrel) 50 MG tablet TAKE 1/2 TABLET BY MOUTH AT BEDTIME IF NEEDED FOR SLEEP 45 tablet 1 024 2024 Discontinued omeprazole (PriLOSEC) [address] capsuleIndicati ons:Gastroesoph ageal reflux disease, unspecified whether esophagitis present TAKE 1 CAPSULE BY MOUTH EVERY DAY 30 MINUTES TO 1 HOUR BEFORE A MEAL 90 capsule 1 024 2024 Discontinued empagliflozin-m etFORMIN (Synjardy) 12.5-1000 MGIndications:T ype 2 diabetes mellitus without complication, without long-term current use of insulin (CMS/HCC) TAKE 1 TABLET BY MOUTH WITH BREAKFAST AND EVENING MEALS 180 tablet 1 024 2024 Discontinued rosuvastatin (Crestor) 5 MG tabletIndicatio ns:Type 2 diabetes mellitus without complication, without long-term current use of insulin ([facility]) TAKE 1 TABLET BY MOUTH EVERY DAY 90 tablet 1 025 2024 Discontinued(R eorder (will not trigger notification to Pharmacy)) tamsulosin (Flomax) 0.4 MG 24 hr capsule Take 1 capsule (0.4 mg) by mouth Once per day for 7 days, THEN 2 capsules (0.8 mg) Once per day. 30 capsule 11 025 2024 Discontinued(D ose adjustment) empagliflozin-m etFORMIN (Synjardy) 12.5-1000 MGIndications:T ype 2 diabetes mellitus without complication, without long-term current use of insulin ([facility]) TAKE 1 TABLET BY MOUTH TWICE DAILY WITH BREAKFAST AND WITH DINNER 180 tablet 1 025 2024 Discontinued(R eorder (will not trigger notification to Pharmacy)) Active Problems Problem Noted Date Diagnosed Date BPH associated with nocturia 01/08/2025 Class 1 obesity 04/26/2023 Moderate asthma 09/14/2022 [...] 09/29/2008 Overview (04/26/2023): [place] [facility] [place] ED (erectile dysfunction) 08/06/2008 Anxiety 02/18/2008 Depression 02/18/2008 Overview (04/26/2023): Patient describes depression, irritability and multiple somatic complaints since the of his brother. Patient denies any suicical ideation. He described difficulties tolerting stess and family h/o of depression. Encounters Date Type Department Care Team Description 01/08/2025 2:00 PM EDT Office Visit [facility] [address] [place] [phone] Ar Lyle MD Type 2 diabetes mellitus without complication, without long-term current use of insulin (CMS/HCC) (Primary Dx); Essential hypertension; Habitual alcohol use; BPH associated with nocturia; Type 2 diabetes mellitus without complication, without long-term current use of insulin (CMS/HCC) 01/08/2025 Travel 01/05/2025 Refill [facility] [address] [place] [phone] Ar Lyle MD Type 2 diabetes mellitus without complication, without long-term current use of insulin (CMS/HCC) 12/21/2024 Refill [facility] [address] [place] [phone] Ar Lyle MD Gastroesophageal reflux disease, unspecified whether esophagitis present 11/27/2024 9:45 AM EST Office Visit [address] [address] Ar Lyle MD Type 2 diabetes mellitus without complication, without long-term current use of insulin (CMS/HCC) (Primary Dx); BPH associated with nocturia; Seborrheic keratosis; Habitual alcohol use; Generalized anxiety disorder 11/26/2024 Telephone [facility] [address], [place] [phone] Ar Lyle MD chartprep 11/19/2024 Patient Outreach [facility] [address], [place] [phone] Ar Lyle MD Pre-visit Planning (SDOH negative, Tobacco screening negative) 11/18/2024 Telephone [facility] [address] [place] [address] [phone] Ar Lyle MD Referral 11/07/2024 Refill [facility] [address] [place] [phone] Ar Lyle MD Generalized anxiety disorder; Type 2 diabetes mellitus without complication, without long-term current use of insulin (CMS/HCC) from Last 3 Months Immunizations Name Administration [...] Tobacco: Current Tobacco Cessation:Ready to Q uit: Not Asked; Counseling Given: Not Answered Comments:Pt reports smoking 2-3 cigarettes per day [...] Date Recorded Patient Health Questionnaire-2 Score 6 11/27/2024 Internet Access Answer Date Recorded Internet Access [...] Sign Reading Time Taken Comments Blood Pressure 142/89 01/08/2025 2:12 PM EDT Pulse 102 01/08/2025 2:00 PM EDT Temperature 36.3 ??C (97.3 ??F) 01/08/2025 2:00 PM ED T Respiratory Rate 21 01/08/2025 2:00 PM EDT Oxygen Saturation 94% 01/08/2025 2:00 PM EDT Inhaled Oxygen Concentration - - Weight 105 kg (231 lb 12.8 oz) 01/08/2025 2:00 P M EDT Height 188 cm (6' 2 ) 01/08/2025 2:00 PM EDT Body Mass Index 29.76 01/08/2025 2:00 PM EDT Plan of Treatment Health Maintenance Due Date Last Done Comments CT Colonography 1967 FIT DNA/Cologuard 1967 FIT 1967 FOBT 1967 HIV Screening 1967 Sigmoidoscopy 1967 Hepatitis C Screening 1985 Hepatitis A Vaccines (1 of 2 - Risk 2-dose series) 1986 Hepatitis B Vaccines (1 of 3 - 19+ 3-dose series) 1986 Zoster Vaccines (1 of 2) 2017 COVID-19 Vaccine ( season) 2024 11/03/2023, 09/16/2022, 02/15/2022, Additional history exists Influenza Vaccine (#1) 2024 , 08/08/2022, 07/28/2021, Additional history exists Diabetes: Hemoglobin A1C 04/09/2025 04/ 025, 11/27/2024, 08/30/2024, Additional history exists Alcohol/Substance Use Screening 05/24/2025 05/24/2024 Diabetes: Foot Exam 05/24/2025 05/24/2024, 05/24/2024, 05/24/2024, Additional history exists Depression Monitoring 05/27/2025 11/27/2024, 024 Diabetes: Urine Protein Screening 11/14/2025 11/14/2024, 11/02/2022, 12/30/2020 Lipid Panel 11/14/2025 11/14/2024, 10/10, 12/30/2020 SDOH Screening 11/19/2025 11/19/2024 Depression Screening 11/27/2025 11/27/2024, 05/24/20 Tobacco Screening 01/08/2026 01/08/2025 Eye Exam 05/27/2026 05/27/2024 DTaP/Tdap/Td Vaccines (2 [...] PharmD Hemoglobin A1c < 7 Result Component 7.3( 2:02 PM EDT) No Isha Taylor, PharmD Record your blood sugar as directed Result Component No Martita Taylorsa, PharmD Procedures Procedure Name Priority Date/Time Associated Diagnosis Comments POCT GLUCOSE Routine 01/08/2025 2:02 PM EDT Type 2 diabetes mellitus without complication, without long-term current use of insulin (CMS/HCC) POCT GLYCATED HEMOGLOBIN, TOTAL Routine 01/08/2025 2:02 PM EDT Type 2 diabetes mellitus without complication, without long-term current use of insulin (CMS/HCC) URINALYSIS, COMPLETE, WITH REFLEX TO CULTURE Routine 11/27/2024 10:30 AM EST BPH associated with nocturia PSA, TOTAL Routine 11/27/2024 10:30 AM EST BPH associated with nocturia BASIC METABOLIC PANEL Routine 11/27/2024 10:30 AM EST Essential hypertension POCT GLUCOSE Routine 11/27/2024 10:05 AM EST Type 2 diabetes mellitus without complication, without long-term current use of insulin (CMS/HCC) POCT GLYCATED HEMOGLOBIN, TOTAL Routine 11/27/2024 10:04 AM EST Type 2 diabetes mellitus without complication, without long-term current use of insulin (CMS/HCC) ALBUMIN, RANDOM URINE W/CREATININE Routine 11/14/2024 8:07 AM EST Type 2 diabetes mellitus without complication, without long-term current use of insulin (CMS/HCC) Essential hypertension Insomnia, unspecified type Encounter for immunization LIPID PANEL, STANDARD Routine 11/14/2024 8:07 AM EST Type 2 diabetes mellitus without complication, without long-term current use of insulin (CMS/HCC) Essential hypertension Insomnia, unspecified type Encounter for immunization COMPREHENSIVE METABOLIC PANEL Routine 11/14/2024 8:07 AM EST Type 2 diabetes mellitus without complication, without long-term current use of insulin (CMS/HCC) Essential hypertension Insomnia, unspecified type Encounter for immunization CBC WITH AUTO DIFFERENTIAL Routine 11/14/2024 8:07 AM EST Type 2 diabetes mellitus without complication, without long-term current use of insulin (CMS/HCC) Essential hypertension Insomnia, unspecified type Encounter for immunization COLONOSCOPY Routine 11/09/2017 3:14 PM EST from Last 3 Months or Most Recently Relevant to Health Maintenance Results * (ABNORMAL) POCT HGB A1C (01/08/2025 2:02 PM EDT) Only the most recent of2 resultswithin the time period is included. Hemoglobin A1C 7.3(A) 4.0 - 6.0 % QC Media Lot # [id number] Lot# Expiration Date [id number] Blood 01/08/2025 2:02 PM EDT Ar Lyle MD POINT OF CARE TEST ENTER/EDIT OR DERABLES Final Result * POCT Glucose (01/08/2025 2:02 PM EDT) Only the most recent of2 resultswithin the time period is included. Glucose Blood, POC 115 60 - 200 mg/dL QC Media Lot # [id number] Lot# Expiration Date [id number] Blood Capillary blood specimen / Unknown 01/08/2025 2:02 PM EDT Ar Lyle MD POINT OF CARE TEST ENTER/EDIT OR DERABLES Final Result * (ABNORMAL) Urinalysis, Complete, with Reflex to Culture (11/27/2024 10:30 AM EST) Color Urine Yellow [facility] Appearance Urine Clear [facility] PH 6.0 5.0 - 9.0 [facility] Glucose Urine UA >=1000(A) Negative mg/dL [facility] Urine Blood Negative Negative [facility] Specific Cardale - Urine >=1.030(H) 1.005 - 1.025 [facility] Urine Protein Trace Neg-Trace mg/dL [facility] Urine Ketones Negative Negative mg/dL [facility] Nitrite Urine Negative Negative [facility] Leukocyte Esterase Urine Negative Negative [facility] RBC Urine 0-2 0 - 2 /HPF [facility] Urine WBC 0-5 0 - 5 /HPF [facility] Urine Squamous Epithelial Cell 0-2 0 - 2 /HPF [facility] Urine Bacteria None Seen None Seen [facility] Hyaline Casts, Urine 0-2 0 - 2 /LPF [facility] Urine 11/27/2024 10:3 0 AM EST 11/27/2024 11:22 AM EST Narrative [facility] - 11/27/2024 11:45 AM EST Urine, Clean Catch us Ar yLle MD LAB URINE ORDERABLES Final Resul t Performing Organization Address [facility]/ZIP Co de Phone Number [facility] [address] [place] [phone] * PSA,Total (11/27/2024 10:30 AM EST) Prostate Specific Antigen 0.30 <0.05 - 4.0 ng/mL [facility] Comment:PSA methodology: Stephanie Onofre i ChemiluminescentMicroparticle Immunoassay (CMIA) Blood Venous blood specimen / Unknown 11/27/2024 10:30 AM EST 11/27/2024 11:10 AM EST us Ar Lyle MD LAB BLOOD ORDERABLES Final Resul t Performing Organization Address [facility]/ZIP Co de Phone Number [facility] [address] [place] [address] [phone] * (ABNORMAL) Basic Metabolic Panel (11/27/2024 10:30 AM EST) Sodium 138 135 - 145 mmol/L [facility] Potassium 4.4 3.3 - 5.1 mmol/L [facility] Chloride 105 96 - 108 mmol/L [facility] Carbon Dioxide 25 22 - 29 mmol/L [facility] Anion Gap 12 12 - 20 [facility] Urea Nitrogen (BUN) 17(H) 9 - 16 mg/dL [facility] Creatinine, Serum 0.94 0.5 - 1.4 mg/dL [facility] Estimated Glomerular Filt Rate >60 [facility] Comment:Chronic Kidney Disea se: Estimated GFR < 60 mL/min/[id number] Kidney Disease: Estimated GFR < 15 mL/min/1.73m2 Glucose 160(H) 60 - 115 mg/dL [facility] Calcium 9.9 8.4 - 10.2 mg/dL [facility] Blood Venous blood specimen / Unknown 11/27/2024 10:30 AM EST 11/27/2024 11:10 AM EST us Ar Lyle MD LAB BLOOD ORDERABLES Final Resul t Performing Organization Address [facility] de Phone Number [facility] [address] [place] [address] [phone] * (ABNORMAL) Albumin, Random Urine W/Creatinine (11/14/2024 8:07 AM EST) Creatinine, Urine 110.63 mg/dL [facility] Microalbumin Urine 56.0 mg/L [facility] Microalbum Creatinine Ratio Ur 50.6(H) <30 ug/mg cr [facility] Comment:Albumin/Creatinine R atio Reference Ranges: Normal: < 30 ug/mg creatinine Microalbuminuria: 30 - 300 ug/mg creatinineClinical Albuminuria: > 300 ug/mg creatinine Urine (Urine, Random) 11/14/2024 8:07 AM EST 11/14/2024 11:22 AM EST us Ar Lyle MD LAB URINE ORDERABLES Final Resul t Performing Organization Address [facility] Co de Phone Number [facility] [address] [place] [address] [phone] * (ABNORMAL) CBC auto differential (11/14/2024 8:07 AM EST) White Blood Count 7.3 4.8 - 10.8 X10*3/uL [facility] Red Blood Count 5.35 4.60 - 5.80 X10*6/uL [facility] Hemoglobin 15.4 14.0 - 18.0 g/dl [facility] Hematocrit 47.2 42.0 - 52.0 % [facility] Mean Corpuscular Volume 88.2 80.0 - 98.0 fL [facility] Mean Corpuscular Hemoglobin 28.8 27.0 - 33.0 pg [facility] Mean Corpuscular HGB Conc 32.6 31.0 - 36.0 g/dl [facility] Red Cell Distribution Width 14.2 11.0 - 16.0 % [facility] Platelet Count 190 160 - 400 X10*3/uL [facility] Mean Platelet Volume 11.9 9.4 - 12.4 fL [facility] Neutrophils Percent Auto 44.4(L) 45 - 73 % [facility] Imm Gran Pct Auto 1.0(H) 0.0 - 0.4 % [facility] Lymphocytes Percent Auto 41.0(H) 20 - 40 % [facility] Monocytes Percent Auto 7.2 2 - 11 % [facility] Eosinophils Percent Auto 5.7(H) 0 - 4 % [facility] Basophils Percent Auto 0.7 0 - 2 % [facility] NRBC Pct Auto 0.0 0.0 - 0.2 /100WBC [facility] Neutrophils Absolute Auto 3.3 2.0 - 8.3 x10*3/uL [facility] Imm Gran Abs Auto 0.07(H) 0.00 - 0.03 X10*3/uL [facility] Lymphocytes Absolute Auto 3.0 1.2 - 4.9 X10*3/uL [facility] Monocytes Absolute Auto 0.5 0.1 - 1.2 X10*3/uL [facility] Eosinophils Absolute Auto 0.4 0.0 - 0.4 X10*3/uL [facility] Basophils Absolute Auto 0.1 0.0 - 0.2 X10*3/uL [facility] NRBC Abs Auto 0.000 0.0 - 0.012 X10*3/uL [facility] Blood Venous blood specimen / Unknown 11/14/2024 8:07 AM EST 11/14/2024 11:12 AM EST Ar Lyle MD LAB BLOOD ORDERABLES Final Resul t Performing Organization Address [facility] Co de Phone Number [facility] [address] [place] [address] [phone] * (ABNORMAL) Lipid Panel, Standard (11/14/2024 8:07 AM EST) Triglycerides 225(H) <150 mg/dL [facility] Comment:Desirable Triglyceri de: less than 150 mg/dLBorderline High Triglyceride 150-199 mg/dLHigh Triglyceride: 200-499 mg/dLVery High Triglyceride: greater than or equal to 5OO mg/dL Cholesterol 238(H) <200 mg/dL [facility] Comment:Desirable Cholestero l: less than 200 mg/dLBorderline High Cholesterol: 200-239 mg/dLHigh Cholesterol: greater than 239 mg/dL LDL Cholesterol Calculated 151(H) <100 mg/dL [facility] Comment:Desirable LDL: less than 100 mg/dLNear Optimal/Above Optimal LDL: 110- 129 mg/dLBorderline High LDL: 130-159 mg/dLHigh LDL: 160-189 mg/dLVery High LDL: greater than or equal to 190 mg/dL HDL Cholesterol 42 >40 mg/dL [facility] Comment:Desirable HDL: great er than 40 mg/dL Note: This HDL assay may give artificially low results in patients with liver disease. Blood Venous blood specimen / Unknown 11/14/2024 8:07 AM EST 11/14/2024 11:12 AM EST us Ar Lyle MD LAB BLOOD ORDERABLES Final Resul t Performing Organization Address City/[facility]/ZIP Co de Phone Number [facility] [address] [place] [address] [phone] * (ABNORMAL) Comprehensive Metabolic Panel (11/14/2024 8:07 AM EST) Sodium 137 135 - 145 mmol/L [facility] Potassium 4.4 3.3 - 5.1 mmol/L [facility] Chloride 106 96 - 108 mmol/L [facility] Carbon Dioxide 24 22 - 29 mmol/L [facility] Anion Gap 11(L) 12 - 20 [facility] Urea Nitrogen (BUN) 17(H) 9 - 16 mg/dL [facility] Creatinine, Serum 0.84 0.5 - 1.4 mg/dL [facility] Estimated Glomerular Filt Rate >60 [facility] Comment:Chronic Kidney Disea se: Estimated GFR < 60 mL/min/[id number] Kidney Disease: Estimated GFR < 15 mL/min/1.73m2 Glucose 150(H) 60 - 115 mg/dL [facility] Calcium 9.3 8.4 - 10.2 mg/dL [facility] Bilirubin, Total 0.3 0.0 - 1.0 mg/dL [facility] Aspartate Amino Transferase 18 5 - 37 U/L [facility] Alanine Aminotransferase 18 0 - 40 U/L [facility] Total Protein 8.3(H) 6.5 - 8.0 g/dL [facility] Albumin Level 4.3 3.5 - 5.0 g/dL [facility] Alkaline Phosphatase 61 39 - 117 U/L [facility] Blood Venous blood specimen / Unknown 11/14/2024 8:07 AM EST 11/14/2024 11:12 AM EST us Ar Lyle MD LAB BLOOD ORDERABLES Final Resul t [facility] [address] [place] [phone] * Hm Colonoscopy (11/09/2017 3:14 PM EST) Colonoscopy Normal Normal Narrative Sylvia Kumar - 11/09/2017 3:14 PM EST Recommended 10 year follow up us Historical Provider HEALTH MAINTENANCE Final Result from Last 3 Months or Most Recently Relevant to Health Maintenance Insurance [facility] Member Subscriber Plan / Payer (Ef fective 2024-Present) Name:Joaquín Isabel Relation to Subscriber:Self Name:Joaquín Isabel Payer ID:Not on file Group ID:[id number] Type:Not on file Address: [address] STANDARD Care Teams Recycle Driver Relationship Specialty Start Date End Date Name, MD Ar [address] [place] [phone] PCP - General Family Medicine 12/25/15
--- OUTSIDE RECORDS SUMMARY | 2025-01-21 08:05 | XMS_ITS | Encounter Summary ---
Author Organization [employer] [facility] Address [address] [place] [address] [address] [place] [address] Care Team Providers Care Manager Trainee Name Role Phone Name, Ar SHAW Primary Care Provider [phone] Isha Taylor PharmD Unavailable [phone] Encounter Details Date Type Department Care Team (Latest Contact Info) Description 05/16/2022 Abstract [facility] CONVERSIONS Dental, Provider, DDS Social History Tobacco [...] on filedocumented in this encounter Care Teams Manager Trainee Relationship Specialty Start Date End Date Name, MD Ar [address] [place] [address] PCP - General Family Medicine 12/25/15 Isha Taylor, PharmD [address] [place] [address] Pharmacist Internal Medicine 08/30/23 05/03/24 documented as of this encounter
--- OUTSIDE RECORDS SUMMARY | 2025-01-21 08:05 | XMS_ITS | Encounter Summary ---
Author Organization [employer] [facility] Address [address] [facility] [address] [place] [address] Care Team Providers Care Pile Driving Setter Name Role Phone NameAr MD Primary Care Provider [phone] Isha Taylor PharmD Unavailable [phone] Encounter Details Date Type Department Care Team (Late st Contact Info) Description 03/09/2023 Abstract [facility] [address] [place], [place] [phone] Name, MD Ar [address] [place] [address] Social History Tobacco Use Types Packs/Day Years [...] on file documented as of this encounter Procedures Procedure Name Priority Date/Time Associated Diagnosis Comments COLONOSCOPY Routine 11/09/2017 3:14 PM EST documented in this encounter Results * Colonoscopy (11/09/2017 3:14 PM EST) Colonoscopy Normal Normal Narrative Sylvia Kumar - 11/09/2017 3:14 PM EST Recommended 10 year follow up us Historical Provider HEALTH MAINTENANCE Final Result documented in this encounter Visit Diagnoses Not on filedocumented in this encounter Care Teams Pile Driving Setter Relationship Specialty Start Date End Date Name, MD Ar [address] [place] [address] PCP - General Family Medicine 12/25/15 Isha Taylor PharmD [address] [place] [address] Pharmacist Internal Medicine 08/30/23 05/03/24 documented as of this encounter
--- OUTSIDE RECORDS SUMMARY | 2025-01-21 08:05 | XMS_ITS | Encounter Summary ---
Author Organization [employer] Address [address] [facility] 7[address] [place] [address] Care Team Providers Care Valve Liner Rubber Name Role Phone NameAr MD Primary Care Provider [phone] Isha Taylor PharmD Unavailable [phone] Reason for Visit * Reason Onset Date Comments Prior Authorization 01/29/2024 Encounter Details Date Type Department Care Team ([facility] st Contact Info) Description 01/29/2024 Telephone [facility] [address] [place], [place] [phone] Name, MD Ar [address] [place] [address] Prior Authorization Social History Tobacco Use Types [...] Isa Oviedo - 02/28/2024 3:12 PM EDT Atomic Fuel Assembler has encountered errors while attempting to submit PA request, pt now found . No insurance scanned into chart. Atomic Fuel Assembler called pt to request info from insurance card. m req call back and/or stop by [facility] to have insurance card scanned into chart. Waiting for call back. * Telephone Encounter - Lucia Arellano - 01/29/2024 9:52 AM EDT Tc from PA is needed for empagliflozin-metFORMIN (Synjardy) 12.5-1000 MG. Pt has not taken medication for 6 days. documented in this encounter Plan of Treatment Not on file documented as of this encounter Goals Goal Patient Goal Type Associated Problems Recent Progress Patient-Stated? Author Smoking cessation General No Puia, Isha, PharmD Hemoglobin A1c < 7 Result Component 7.3( 5 2:02 PM EDT) No Puia, Isha, PharmD Record your blood sugar as directed Result Component No Puia, Isha, PharmD documented as of this encounter Visit Diagnoses Not on filedocumented in this encounter Care Teams Valve Liner Rubber Relationship Specialty Start Date End Date Name, MD Ar [address] [place] [address] PCP - General Family Medicine 12/25/15 Isha Taylor, PharmD [address] [place] [id number] Pharmacist Internal Medicine 08/30/23 05/03/24 documented as of this encounter
--- OUTSIDE RECORDS SUMMARY | 2025-01-21 08:05 | XMS_ITS | Encounter Summary ---
Author Organization [facility] Address [address] [place] [address] [address] [place] [address] Care Team Providers Care Physical Optics Teacher Name Role Phone Name, Ar SHAW Primary Care Provider Isha Taylor PharmD Unavailable [phone] Encounter Details Date Type Department Care Team (Late st Contact Info) Description 11/07/2022 Orders Only [facility] [address] [place], [place] [phone] Martha Linder LPN Social History Tobacco Use [...] on filedocumented in this encounter Care Teams Physical Optics Teacher Relationship Specialty Start Date End Date Name, MD Ar [address] [place], [place] [phone] PCP - General Family Medicine 12/25/15 Isha Taylor, Kayla [address] [place] [phone] Pharmacist Internal Medicine 08/30/23 05/03/24 documented as of this encounter
--- NOTE | 2025-01-21 08:06 | A.OFFVIS_ITS ---
Intake Visit Reasons: BPH with nocturia Intake Note: New Patient presents for initial visit for nocturia and urinary frequency Urology Medications: tamsulosin Blood Thinner: aspirin PVR: 58ml's Assembler Unit Required: No Accompanied by: Self / Same As Patient Allergies No Known Allergies [No Known Allergies*] Allergy (Unverified 01/21/25 08:32) Medication List - Last Reconciled 01/21/25 by ALTAGRACIA Daniels- amlodipine mg PO aspirin 81 mg PO DAILY chlorhexidine gluconate 0.12% buccal empagliflozin-metformin 12.5-1,000 mg (Synjardy) tabs PO losartan 100 mg PO DAILY methocarbamol 500 mg PO BID omeprazole 20 mg PO DAILY paroxetine HCl 40 mg PO DAILY rosuvastatin 5 mg PO DAILY tamsulosin 0.8 mg PO DAILY trazodone 25 mg PO BEDTIME PRN HPI Comments Details: Joaquín is a pleasant 59-year-old male patient of Dr. Lyle. He has a past medical history of anxiety, habitual alcohol use, seborrheic keratosis, and type 2 diabetes. He presents to the office today as a new patient for ongoing lower urinary tract symptoms he had been experiencing (urinary frequency, urinary hesitancy, and nocturia). In discussion with the patient today he reports having followed-up with his PCP and discussing his ongoing issues with urinary frequency and nocturia at which time he was started on tamsulosin and recommendations were made for urology referral for further assessment evaluation. In discussion with the patient today he reports significant improvement in lower urinary tract symptoms with 0.4 mg of Flomax daily. He otherwise denies urinary urgency, urinary frequency, incontinence, nocturia, hematuria, dysuria, foul smelling urine, changes to urinary stream, flank pain, fever, and or chills. He is happy with his current voiding parameters. In review of patient's chart it appears PSA 12/03 0.3. We discussed potential causes for lower urinary tract symptoms patient was experiencing as well as bladder triggers and irritants. We discussed importance of management and diabetes for improvement in lower urinary tract symptoms as well as overall health and well-being. Unable to provide urine for urinalysis today as patient unable to void however PVR 58 mls. [facility] Medical History Generalized anxiety disorder Habitual alcohol use Seborrheic keratosis BPH associated with nocturia Type 2 diabetes mellitus without complication, without long-term current use of insulin Review of Systems Const All systems reviewed & are unremarkable except as noted in HPI and below Physical Exam Const General: cooperative, comfortable, no acute distress, well developed, alert and awake Orientation/consciousness: patient oriented x3 HEENT Head: Yes normal to inspection, Yes normocephalic and Yes atraumatic Ears: hearing grossly normal bilaterally Eyes General: appearance normal, both eyes and all related structures Neck Neck: Yes normal visual inspection and Yes trachea midline Chest Chest palpation & inspection: normal inspection of the chest Resp Effort & Inspection: normal respiratory effort and able to speak in complete sentences Cardio Rate: regular rate GI Inspection: Yes normal to inspection General: Yes no CVA tenderness Back/Spine/Pelvis Back: no CVA tenderness Skin General skin exam: no rashes or lesions noted Neuro General: patient oriented x3 Extrem General: Yes normal to inspection Psych Appearance: grossly normal and well kempt Mental Status: mental status grossly normal Speech and movement: Normal speech and movement present and Clear speech present Affect: normal affect Attitude: cooperative Thought process: Normal thought process present Thought content: Normal thought content present Insight: Fair insight present (Psych) Judgement: Fair judgement present (Psych) Office Procedures Post Void Residual Post Residual Void Post Void Residual (PVR): [id number] Void Residual by ultrasound Assessment & Plan Assessment & Plan (1) Urinary frequency: Code(s): R35.0 - Frequency of micturition Category: Medical (2) Urinary hesitancy due to benign prostatic hyperplasia: Code(s): N40.1 - Benign prostatic hyperplasia with lower urinary tract symptoms; R39.11 - Hesitancy of micturition Category: Medical (3) Nocturia: Code(s): R35.1 - Nocturia Category: Medical (4) Lower urinary tract symptoms: Code(s): R39.9 - Unspecified symptoms and signs involving the genitourinary system Category: Medical Plan Unable to obtain urine for urinalysis however PVR 58 mL. Patient reports be happy with current voiding parameters on 0.4 mg of Flomax; will continue. He currently denies any bothersome urinary issues or concerns. We discussed importance of management and diabetes for improvement in lower urinary tract symptoms as well as overall health and well-being. We discussed potential causes of lower urinary tract symptoms patient had been experiencing as well as further treatment options and risks and benefits of these treatment options. Most recent PSA results reviewed with the patient today; as noted above. We discussed potential near future retroperitoneal ultrasound and or in office cystoscopy for further assessment evaluation if symptoms arise. Follow-up in 3 months with PVR; or sooner with any issues, concerns, and or questions Orders: Orders AMB Post Void Residual by ultrasound Today N39.41 - Urge incontinence Patient Instructions: The patient had an opportunity to ask questions regarding the treatment plan. All questions were answered. Physical exam, labs, and imaging were discussed and reviewed in detail. As well as risks, benefits, and discussion of treatment choices. No major barriers to understanding were identified. The patient expressed understanding and agreement with the above treatment plan. The patient was made aware they should contact our office by phone for worsening of their current condition, the appearance of new symptoms, or with any questions or concerns. Compliance is encouraged with any medications and follow up testing that is ordered. It is a privilege to be allowed the opportunity to participate in? your urological care.? Again, if you have any questions or concerns If you have any questions or concerns please do not hesitate to contact me. The office is [phone]. This note is constructed using voice recognition software. While every effort has been made to ensure accuracy senior mechanical designer errors may have been included. Yours sincerely, PAMELA Daniels Coding Level of Care Code New Pt Level 3 (79879) Diagnoses Urinary frequency R35.0 Urinary hesitancy due to benign prostatic hyperplasia N40.1; R39.11 Nocturia R35.1 Lower urinary tract symptoms R39.9 CPT Codes Post Residual Void - PVR CPT Code: 19829-Bujh Void Residual by ultrasound ([id number])
== END 2025-01-21 08:34 | disposition home or self-care (01) ==
LOC: HO.HUSH 08:01
PROVIDERS: PCP Internal Medicine Geriatric Medicine; Visit Provider Nurse Practitioner Family
DX: N40.1 Benign prostatic hyperplasia with lower urinary tract symptoms (principal); R35.1 Nocturia; R35.0 Frequency of micturition; R39.11 Hesitancy of micturition; R39.9 Unspecified symptoms and signs involving the genitourinary system
CPT/HCPCS: 99203

== ENCOUNTER → 2025-01-21 08:00 | Outpatient (BNVA) | payer OTHER, SELFPAY | PROVIDERS: PCP Internal Medicine Geriatric Medicine; Visit Provider Nurse Practitioner Family | DX: N40.1 Benign prostatic hyperplasia with lower urinary tract symptoms (principal); R35.0 Frequency of micturition; R39.11 Hesitancy of micturition; R39.9 Unspecified symptoms and signs involving the genitourinary system; R35.1 Nocturia | CPT/HCPCS: 51798; 99202 ==

== ENCOUNTER 2025-03-07 10:09 | Outpatient (REF) | payer OTHER, SELFPAY ==
--- NOTE | ~2025-03-07 | XR_ITS ---
EXAMINATION: XR CERVICAL SPINE CLINICAL INFORMATION: Trauma to right side of neck COMPARISON: None available. TECHNIQUE: 3 views of the cervical spine were obtained. FINDINGS: There is maintained cervical lordosis. Loss of C3-4, C4-5, C5-6 and C6 -C7 disc heights with mild ventral spondylosis is noted. Rest the disc heights are normal. Vertebral heights and alignment is preserved. The craniovertebral junction is normal. No visible acute fracture, dislocation or lytic process seen. The prevertebral soft tissues are normal. XR/XR cervical spine 3V IMPRESSION: Mild degenerative disc changes with ventral spondylosis C3-4 through C6-7 disc levels . Electronically signed by: Peyman Porter MD 03/07/2025 10:35 AM EDT
--- NOTE | ~2025-03-07 | XR_ITS ---
EXAMINATION: XR KNEE, LEFT CLINICAL INFORMATION: chronic knee pain COMPARISON: None available. TECHNIQUE: Four views of the left knee. FINDINGS: The tricompartment joint spaces preserved. There is no visible acute fracture, dislocation or subluxation. No bony erosive changes. No abnormal joint effusion. XR/XR knee LT 3V IMPRESSION: Unremarkable left knee exam. Electronically signed by: Peyman Porter MD 03/07/2025 10:36 AM EDT
--- OUTSIDE RECORDS SUMMARY | 2025-03-07 10:46 | XMS_ITS | Encounter Summary ---
Author Organization [employer] Address [address] [place] [address] [address] [place] [address] Care Team Providers Care Refrigerator Cabinetmaker Name Role Phone Name, Ar SHAW Primary Care Provider [phone] Isha Taylor PharmD Unavailable [phone] Reason for Visit * Reason Comments Med Refill Encounter Details Date Type Department Care Team (Late st Contact Info) Description 06/20/2023 Refill [facility] [address] [place] [address] [phone] Name, MD Ar [address] [place] [phone] Generalized anxiety disorder Social History Tobacco Use [...] Care Team (Late st Contact Info) Description 05/02/2025 1:15 PM EDT Office Visit [facility] [address] [place] [phone] Arsalan Quick MD [address] [place] [address] [phone] documented as of this encounter Visit Diagnoses Diagnosis Generalized anxiety disorder documented in this encounter Care Teams Refrigerator Cabinetmaker Relationship Specialty Start Date End Date Name, MD Ar [address] [place] [address] PCP - General Family Medicine 12/25/15 Isha Taylor PharmD [address] [place] [address] Pharmacist Internal Medicine 08/30/23 05/03/24 documented as of this encounter
[2025-03-07 12:28] LABS: Uric Acid 5.4 mg/dL (3.4-7.0)
== END 2025-03-07 10:10 | disposition home or self-care (01) ==
LOC: HO.HHCL 10:09
PROVIDERS: Visit Provider Nurse Practitioner Family
DX: M25.562 Pain in left knee (principal); G89.29 Other chronic pain; M54.2 Cervicalgia
CPT/HCPCS: 36415; 72040; 73562; 84550

== ENCOUNTER → 2025-03-07 10:18 | Outpatient (BNV) | payer OTHER, SELFPAY | PROVIDERS: Visit Provider Radiology Diagnostic Radiology | DX: M50.321 Other cervical disc degeneration at C4-C5 level (principal); M25.562 Pain in left knee | CPT/HCPCS: 72040; 73562 ==